=== PATIENT | male | born 1965 | race African-American/Black ===

== ENCOUNTER 2020-03-11 12:56 | Inpatient (IN) | payer BC, OTHER ==
[~2020-03-11] VITALS: Ht 182.9 cm; Wt 101.5 kg
[2020-03-11] MEDS ORDERED: SODIUM CHLORIDE 0.9% 1,000 ML IV ONE (13:45)
[2020-03-11 14:29] LABS: Eosinophils # (auto) 0 10 ^3/uL (0-0.8); Monocytes # (auto) 1.2 10 ^3/uL (0-1.3); Red Cell Distribution Width 14.5 % (11.8-14.3)
[2020-03-11 14:30] LABS: Basophils # (auto) 0 10 ^3/uL (0-0.2); Basophils % (auto) 0.5 % (0.0-2.0); Eosinophils % (auto) 0.4 % (0.0-7.0); Hematocrit 48.6 % (41.0-53.0); Hemoglobin 15.5 g/dL (13.5-17.5); Lymphocytes # (auto) 1.2 10 ^3/uL (0.4-5.4); Lymphocytes % (auto) 14.2 % (10.0-50.0); Mean Corpuscular Hemoglobin 23.6 pg (28.0-32.0); Mean Corpuscular Hgb Conc. 31.8 g/dL (32.0-36.0); Monocytes % (auto) 14.6 % (0.0-12.0); Neutrophils # (auto) 5.9 10 ^3/uL (1.6-8.6); Neutrophils % (auto) 70.3 % (37.0-80.0); Nucleated Red Blood Cells % 0.2 %; Platelet Count (auto) 198 10^3/uL (140-450); Red Blood Cells 6.57 10^6/uL (4.5-5.90); White Blood Cell 8.4 10^3/uL (4.4-10.8)
[2020-03-11 14:44] LABS: Albumin 3.7 g/dL (3.4-5.0); Anion Gap 6 (5-15); Blood Urea Nitrogen 14 mg/dL (7-18); Calcium 8.8 mg/dL (8.5-10.1); Carbon Dioxide 26 mmol/L (21-32); Chloride 104 mmol/L (98-107); Glucose 99 mg/dL (74-106); Magnesium 2.3 mg/dL (1.6-2.6); Potassium 4.1 mmol/L (3.5-5.1); Sodium 136 mmol/L (136-145)
[2020-03-11] MEDS ORDERED: ACETAMINOPHEN 500 MG TAB PO ONE (14:45)
[2020-03-11 14:50] LABS: Alanine Aminotransferase 77 U/L (16-61); Alkaline Phosphatase 96 U/L (45-117); Aspartate Aminotransferase 28 U/L (15-37); BUN/Creatinine Ratio 12.3; Bilirubin, Total 0.9 mg/dL (0.2-1.0); GFR African American 86 mL/min; GFR Non-African American 71 mL/min; Total Protein 8.8 g/dL (6.4-8.2)
[2020-03-11] MEDS ORDERED: OSELTAMIVIR 75 MG CAP PO ONE (15:30)
[2020-03-11] MEDS ORDERED: ASCORBIC ACID 500 MG TAB PO ONE (15:30)
[2020-03-11] MEDS ORDERED: AZITHROMYCIN 500MG/ 250ML 250 ML IV ONE (15:30)
[2020-03-11] MEDS ORDERED: ZINC SULFATE 220mg CAP or TAB PO ONE (17:30)
[2020-03-11] MEDS ORDERED: IOHEXOL 350 MG/ML 100ML IJ ONE (17:41)
[2020-03-11 19:18] LABS: INR 1.14 (0.9-1.15); Partial Thromboplastin Time 33.3 sec (23.64-32.05)
[2020-03-11] MEDS ORDERED: SODIUM CHLORIDE 0.9% 1,000 ML IV SCH (20:27)
[2020-03-11] MEDS ORDERED: ACETAMINOPHEN 500 MG TAB PO PRN (20:30)
[2020-03-11] MEDS ORDERED: ALBUTEROL SULF HFA 90MCG INH 200DOSE IN SCH (22:00)
[2020-03-12] VITALS (7 sets, daily range): BP systolic 103–133; BP diastolic 56–81
[2020-03-12] MEDS: DOXYCYCLINE 100 MG TAB/CAP PO SCH ×3 (01:18→21:26)
--- NOTE | 2020-03-12 01:32 | NUR ---
MS admit from ER HERMELINDOWONG admitted to tele/MS after. Patient oriented to Lucina Elizondo, primary RN, unit, room, bed, and unit policies regarding patient care and visiting hours. Patient weighed by bedscale and encouraged to call if they need something. All questions and concerns addressed, patient verbalized understanding. Patient is positive for COVID 19, on 2L nasal canula saturating at 94%. No complaints of pain or SOB at this time. Will continue to monitor. Note:
--- NOTE | 2020-03-12 01:45 | NUR ---
PATIENT PLACED ON TELE MONITOR #15.
[2020-03-12] MEDS ORDERED: CHOL20007 PO (02:34)
[2020-03-12] MEDS ORDERED: ASCO500T11 PO (02:34)
[2020-03-12 04:58] LABS: Basophils # (auto) 0 10 ^3/uL (0-0.2); Eosinophils # (auto) 0 10 ^3/uL (0-0.8); Eosinophils % (auto) 0.2 % (0.0-7.0); Monocytes # (auto) 1.4 10 ^3/uL (0-1.3); Nucleated Red Blood Cells % 0.1 %
[2020-03-12 05:00] LABS: Basophils % (auto) 0.4 % (0.0-2.0); Hemoglobin 15.2 g/dL (13.5-17.5); Lymphocytes # (auto) 1.1 10 ^3/uL (0.4-5.4); Lymphocytes % (auto) 11.8 % (10.0-50.0); Mean Corpuscular Hemoglobin 23.9 pg (28.0-32.0); Mean Corpuscular Hgb Conc. 31.7 g/dL (32.0-36.0); Mean Corpuscular Volume 75.3 fL (80.0-100.0); Monocytes % (auto) 15.6 % (0.0-12.0); Neutrophils # (auto) 6.5 10 ^3/uL (1.6-8.6); Platelet Count (auto) 172 10^3/uL (140-450); Red Blood Cells 6.38 10^6/uL (4.5-5.90)
[2020-03-12 05:15] LABS: Albumin 3.3 g/dL (3.4-5.0); Calcium 8.5 mg/dL (8.5-10.1); Magnesium 2.3 mg/dL (1.6-2.6); Potassium 4.3 mmol/L (3.5-5.1)
[2020-03-12 05:18] LABS: BUN/Creatinine Ratio 11.7; Bilirubin, Total 1.1 mg/dL (0.2-1.0); Total Protein 8.2 g/dL (6.4-8.2)
--- NOTE | 2020-03-12 08:00 | NUR ---
Received call from [employer]. regarding patient running an ectopic/bigeminy heart beat with a HR sustaining in the 140's/ Patient's HR now in the 130's. Patient denies chest pains and is asymptomatic and VSS at this time. Obtained EKG with a result of atrial flutter and paired ventricular premature complexes. Called hospitalist supervisor contact lens. MD Antonio gave orders for Labetalol 10mg IV q2h prn for HR >140 and Cardio consult. Orders read back and verified. Will carry out new orders and will cont to monitor patient.
[2020-03-12] MEDS ORDERED: LABETALOL HCL 5 MG/ML 4ML SYRINGE IV PRN (08:30)
--- NOTE | 2020-03-12 08:30 | NUR ---
Hospitalist Notified MD Mcrae regarding patient's EKG findings, including new orders given by MD Antonio. MD Mcrae agrees with new orders. MD Mcrae also notified of patient's QTC 530 therefore, Plaquenil will be held, Agrees. Will cont to monitor patient.
[2020-03-12] MEDS ORDERED: OSELTAMIVIR 75 MG CAP PO SCH (10:00)
[2020-03-12] MEDS: ZINC SULFATE 220mg CAP or TAB PO SCH (10:42)
[2020-03-12] MEDS: CHOLECALCIFEROL (VITD3) 1,000IU=25mCg TAB PO SCH (10:43)
[2020-03-12] MEDS: OSELTAMIVIR 75 MG CAP PO SCH ×2 (10:43→21:26)
[2020-03-12] MEDS: ASCORBIC ACID 1,000 MG TAB PO SCH (10:43)
[2020-03-12] MEDS: ENOXAPARIN SOD 40 MG/0.4 ML SYRINGE SC SCH (10:43)
--- NOTE | 2020-03-12 14:00 | NUR ---
Temp Patient had a temp of 101.0. Administered tylenol 1000 mg per MD orders. Will cont to monitor patient.
--- NOTE | 2020-03-12 17:30 | NUR ---
Hospitalist MD Mcrae at bedside, aware of patient status. New orders for EKG received. Patient will be upgraded from medsurg status to telemetry status. Will carry out new orders and cont to care for patient.
--- NOTE | 2020-03-12 17:53 | NUR ---
EKG EKG obtained, results read to MD Mcrae. Per MD Mcrae, she will input orders for scheduled labetalol. Will cont to monitor patient. Addendum: 03/12/20 at 1856 by KIMANI PRIETO RN RN Scheduled beta radha, no labetalol specifically.
--- NOTE | 2020-03-12 18:24 | NUR ---
Per MD Mcrae, obtain EKG in the morning 03/13/2020. Will endorse to night RN.
[2020-03-12] MEDS: cefTRIAXone 1GM/50ML D5W 50 ML IV SCH (18:47)
--- NOTE | 2020-03-12 19:30 | NUR ---
Opening Shift Note Assumed care of patient, awake and alert x4. Patient denies pain or shortness of breath at this time. Patient is on 2L NC, oxygen saturation is 94% at this time. No sign/symptoms of distress noted or verbalized at this time. Incentive spirometer noted at the bedside. Reeducated patient on the purpose of the incentive spirometer, frequency, and how to use it, patient verbalized understanding and returned demonstration. Encouraged patient to self prone (lay on his stomach), patient verbalized understanding and agreed to self prone during the night. Bed is locked in lowest position, side rails x 2 are up, and call light is within reach.
[2020-03-12] MEDS: ALBUTEROL SULF HFA 90MCG INH 200DOSE IN SCH (20:18)
[2020-03-12] MEDS: METOPROLOL TARTRATE 25 MG TAB PO SCH (21:26)
[2020-03-13 05:00] VITALS: BP 97/53
--- NOTE | 2020-03-13 05:40 | NUR ---
EKG Performed EKG performed as ordered by and placed in hardchart.
[2020-03-13] MEDS: ALBUTEROL SULF HFA 90MCG INH 200DOSE IN SCH ×3 (05:57→23:00)
--- NOTE | 2020-03-13 05:57 | NUR ---
Respiratory note: MDI GIVEN BY RN. PT HR 137, SPO2 91% ON 2 L NC, RR 20, BS CLEAR.
--- NOTE | 2020-03-13 06:43 | NUR ---
Temperature Temperature is 99.7. Cooling measures initiated and in place.
--- NOTE | 2020-03-13 07:25 | NUR ---
Temperature Temperature is 99.1. Cooling measures continue to be in place.
--- NOTE | 2020-03-13 07:26 | NUR ---
Closing Shift Note Endorsed patient care to Hayde ASHER.
--- NOTE | 2020-03-13 08:41 | NUR ---
Gurdeep labs and sent
[2020-03-13] MEDS: cefTRIAXone 1GM/50ML D5W 50 ML IV SCH (09:51)
[2020-03-13] MEDS: ZINC SULFATE 220mg CAP or TAB PO SCH (09:51)
[2020-03-13] MEDS: METOPROLOL TARTRATE 25 MG TAB PO SCH ×2 (09:53→22:00)
[2020-03-13] MEDS: DOXYCYCLINE 100 MG TAB/CAP PO SCH ×2 (09:53→21:30)
[2020-03-13] MEDS: OSELTAMIVIR 75 MG CAP PO SCH ×2 (09:53→21:33)
[2020-03-13] MEDS: ENOXAPARIN SOD 40 MG/0.4 ML SYRINGE SC SCH (09:56)
[2020-03-13] MEDS: ASCORBIC ACID 1,000 MG TAB PO SCH (09:56)
[2020-03-13] MEDS: CHOLECALCIFEROL (VITD3) 1,000IU=25mCg TAB PO SCH (09:56)
[2020-03-13] MEDS ORDERED: ASCORBIC ACID 500 MG TAB PO SCH (10:00)
[2020-03-13] MEDS ORDERED: FUROSEMIDE 20 MG/2 ML VIAL IV ONE (10:30)
[2020-03-13] MEDS ORDERED: AMIODARONE HCL 150 MG in D5W 5% 100 ML IV ONE (10:30)
[2020-03-13] MEDS ORDERED: MAGNESIUM OXIDE 400 MG TAB PO ONE (10:30)
[2020-03-13 10:40] LABS: BUN/Creatinine Ratio 13.1; Calcium 8.9 mg/dL (8.5-10.1)
[2020-03-13 12:00] VITALS: BP 118/61
[2020-03-13 12:25] VITALS: BP 115/61
--- NOTE | 2020-03-13 14:15 | NUR ---
Respiratory note: MDI GIVEN BY RT. TOLERATED WELL. HR 93, RR 14, SPO2 95% ON 2 L NC, CLEAR. NO SIGNS OR SYMPTOMS OF RESPIRATORY DISTRESS NOTED AT THIS TIME.
[2020-03-13 14:21] LABS: Cholesterol 174 mg/dL (< 200); HDL Cholesterol 38 mg/dL (40-59); LDL Cholesterol 111 mg/dL (< 100); Triglycerides 94 mg/dL (< 150)
--- NOTE | 2020-03-13 15:19 | NUR ---
ss consult Per ss consult advanced directive information. Patient has been provided with advanced directive. Addendum: 03/13/20 at 1521 by Ira MEDINA Amended: Links added.
[2020-03-13 16:56] VITALS: BP 111/73
[2020-03-13 17:36] LABS: Alcohol, Urine < 3.0 mg/dL (0-10); Amphetamine Screen, Urine NEGATIVE (NEGATIVE); Barbiturate Scree,Urine NEGATIVE (NEGATIVE); Benzodiazephine Screen, Urine NEGATIVE (NEGATIVE); Cannabinoid Screen, Urine NEGATIVE (NEGATIVE); Cocaine Screen, Urine NEGATIVE (NEGATIVE); Opiate Scree,Urine NEGATIVE (NEGATIVE); Phencyclidine Screen, Urine NEGATIVE (NEGATIVE)
--- NOTE | 2020-03-13 19:10 | NUR ---
Opening Shift Note Received report from romario Marin RN. Assumed care of patient, awake and alert. No S/S of distress/SOB or pain. On 2LNC saturating at 94%. Instructed on POC and to call for assist PRN, will continue to monitor for changes Q1hr and PRN. Bed placed in lowest position and call light within reach.
[2020-03-13 20:00] VITALS: BP 112/75
--- NOTE | 2020-03-13 20:16 | NUR ---
ROUNDS Patient states his last bowel movement was 4 days ago. Bowel sounds present to all quadrants and patient states he does not have any appetite, but continues to passed gas. Given some tea per request. Will monitor.
[2020-03-13] MEDS: APIXABAN 5 MG TAB PO SCH (21:33)
[2020-03-13] MEDS: MAGNESIUM OXIDE 400 MG TAB PO SCH (21:33)
[2020-03-13] MEDS ORDERED: AMIODARONE HCL 200 MG TAB PO SCH (22:00)
[2020-03-14] VITALS: BP 100/52
--- NOTE | 2020-03-14 | NUR ---
ROUNDS PATIENT IS RESTING IN BED WITH EYES CLOSED, NO DISTRESS NOTED SATURATING AT 95% ON 2LNC, HEART RATE IS 78BPM. WILL MONITOR.
[2020-03-14 04:00] VITALS: BP 108/77
--- NOTE | 2020-03-14 04:00 | NUR ---
ROUNDS PATIENT IS ALERT AND ORIENTED, NO DISTRESS NOTED AND PATIENT DENIES PAIN, ON 2LNC SATURATING AT 95%. BLOOD PRESSURE IS 108/77, PULSE IS 74, AND RESPIRATIONS 18.
[2020-03-14] MEDS: ALBUTEROL SULF HFA 90MCG INH 200DOSE IN SCH (07:02)
--- NOTE | 2020-03-14 07:20 | NUR ---
Respiratory note: PER PT STATES HE ALREADY SELF ADMINISTERED MDI, RN AMAURI CLEARED Emr. PT DENIES ANY CURRENT SOB OR DIFF BREATHING. HR 113 RR 16 SPO2 94% ON 2L N/C. PT AND RN AWARE TO HAVE RT PAGED IF NEEDED.
[2020-03-14 07:24] VITALS: BP 108/77
--- NOTE | 2020-03-14 08:00 | NUR ---
Spoke with Rashida Mckay HYDROLOGIST-C Regarding patients rate and rhythm, orders placed by provider.
[2020-03-14] MEDS ORDERED: AMIODARONE 450mg/250ml AE 250 ML IV SCH (08:23)
[2020-03-14] MEDS: cefTRIAXone 1GM/50ML D5W 50 ML IV SCH (09:41)
[2020-03-14] MEDS: METOPROLOL TARTRATE 25 MG TAB PO SCH ×2 (09:43→21:36)
[2020-03-14] MEDS: APIXABAN 5 MG TAB PO SCH ×2 (09:43→21:37)
[2020-03-14] MEDS: ZINC SULFATE 220mg CAP or TAB PO SCH (09:43)
[2020-03-14] MEDS: DOXYCYCLINE 100 MG TAB/CAP PO SCH ×2 (09:44→21:36)
[2020-03-14] MEDS: ASCORBIC ACID 1,000 MG TAB PO SCH (09:44)
[2020-03-14] MEDS: CHOLECALCIFEROL (VITD3) 1,000IU=25mCg TAB PO SCH (09:44)
[2020-03-14] MEDS: OSELTAMIVIR 75 MG CAP PO SCH ×2 (09:44→21:37)
[2020-03-14] MEDS: MAGNESIUM OXIDE 400 MG TAB PO SCH ×2 (09:44→21:35)
[2020-03-14] MEDS ORDERED: FUROSEMIDE 20 MG/2 ML VIAL IV SCH (10:00)
--- NOTE | 2020-03-14 11:30 | NUR ---
Patients Gela called regarding patients current condition. Gave her information after she gave the password on patients account.
[2020-03-14 12:54] VITALS: BP 108/75
[2020-03-14] MEDS ORDERED: POTASSIUM CHL 10 Meq TABLET PO ONE (14:00)
[2020-03-14] MEDS: AMIODARONE 450mg/250ml AE 250 ML IV SCH (14:22)
--- NOTE | 2020-03-14 14:59 | NUR ---
Respiratory note: 14:00 ALBUTEROL INH NOT ADMINISTERED DUE TO BEING DC'D BY DR. MONTERROSO. RN AWARE TO HAVE RT PAGED IF NEEDED.
[2020-03-14 17:00] VITALS: BP 115/67
--- NOTE | 2020-03-14 19:10 | NUR ---
OPENING SHIFT NOTE: ASSUMED CARE OF PATIENT. PATIENT IS AWAKE, ALERT AND ORIENTED X4. NO S/S OF SOB OR DISTRESS AND PATIENT DENIES PAIN. RESPIRATIONS EVEN AND UNLABORED, O2 96% ON 2L NC. CONTINUOUS FLEXOGRAPHIC PRESS PLATE SETTER BOX #15 WITH CURRENT READING OF 97 BPM. BED IS IN LOWEST LOCKED POSITION WITH TWO SIDE RAILS RAISED AND CALL BHATIA WITHIN REACH. ISOLATINON PRECAUTIONS IN PLACE AND CARE PROVIDED USING PROVIDED PPE. INSTRUCTED ON POC AND INSTRUCTED TO USE CALL BHATIA FOR ASSISTANCE, ALL QUESTIONS AND CONCERNS ADDRESSED, PATIENT VERBALIZES UNDERSTANDING. WILL CONTINUE TO MONITOR Q1 HR AND PRN.
[2020-03-14 20:00] VITALS: BP 119/87
[2020-03-15] VITALS: BP 118/73
[2020-03-15 04:00] VITALS: BP 123/88
[2020-03-15] MEDS: AMIODARONE 450mg/250ml AE 250 ML IV SCH (05:49)
[2020-03-15 05:55] LABS: Basophils # (auto) 0 10 ^3/uL (0-0.2); Basophils % (auto) 0.5 % (0.0-2.0); Eosinophils # (auto) 0 10 ^3/uL (0-0.8); Eosinophils % (auto) 0.7 % (0.0-7.0); Hematocrit 43.7 % (41.0-53.0); Lymphocytes # (auto) 0.9 10 ^3/uL (0.4-5.4); Lymphocytes % (auto) 14.1 % (10.0-50.0); Mean Corpuscular Hemoglobin 23.6 pg (28.0-32.0); Mean Corpuscular Hgb Conc. 32.1 g/dL (32.0-36.0); Mean Corpuscular Volume 73.5 fL (80.0-100.0); Monocytes # (auto) 1.1 10 ^3/uL (0-1.3); Monocytes % (auto) 16.7 % (0.0-12.0); Neutrophils # (auto) 4.3 10 ^3/uL (1.6-8.6); Platelet Count (auto) 207 10^3/uL (140-450); Red Blood Cells 5.94 10^6/uL (4.5-5.90); Red Cell Distribution Width 14.2 % (11.8-14.3); White Blood Cell 6.3 10^3/uL (4.4-10.8)
--- NOTE | 2020-03-15 06:00 | NUR ---
ROUNDS: Patient resting in bed with eyes closed, no distress noted and O2 saturation 98% on 2L NC. Will continue to monitor
[2020-03-15 06:23] LABS: Calcium 8.7 mg/dL (8.5-10.1)
[2020-03-15 06:29] LABS: Albumin 2.9 g/dL (3.4-5.0); BUN/Creatinine Ratio 17.1; Bilirubin, Total 1.1 mg/dL (0.2-1.0)
--- NOTE | 2020-03-15 07:30 | NUR ---
Opening Shift Note Assumed care of patient, awake and alert. No S/S of distress/SOB or pain. Instructed on POC and to call for assist PRN, will continue to monitor for changes Q1hr and PRN. Fall precautions in place per safety protocol.
[2020-03-15 08:00] VITALS: BP 109/82
[2020-03-15] MEDS ORDERED: FUROSEMIDE 20 MG/2 ML VIAL IV SCH (10:00)
[2020-03-15] MEDS: METOPROLOL TARTRATE 25 MG TAB PO SCH ×3 (10:00→22:06)
[2020-03-15] MEDS ORDERED: POTASSIUM CHL 10 Meq TABLET PO SCH (10:00)
[2020-03-15] MEDS: ZINC SULFATE 220mg CAP or TAB PO SCH (10:08)
[2020-03-15] MEDS: cefTRIAXone 1GM/50ML D5W 50 ML IV SCH (10:08)
[2020-03-15] MEDS: APIXABAN 5 MG TAB PO SCH ×2 (10:08→22:05)
[2020-03-15] MEDS: OSELTAMIVIR 75 MG CAP PO SCH ×2 (10:09→22:05)
[2020-03-15] MEDS: MAGNESIUM OXIDE 400 MG TAB PO SCH ×2 (10:09→22:05)
[2020-03-15] MEDS: ASCORBIC ACID 1,000 MG TAB PO SCH (10:09)
[2020-03-15] MEDS: DOXYCYCLINE 100 MG TAB/CAP PO SCH ×2 (10:09→22:05)
[2020-03-15] MEDS: CHOLECALCIFEROL (VITD3) 1,000IU=25mCg TAB PO SCH (10:09)
[2020-03-15] MEDS ORDERED: DOCUSATE SOD 100 MG CAP PO ONE (11:00)
[2020-03-15] MEDS ORDERED: DOCUSATE SOD 100 MG CAP PO PRN (11:00)
--- NOTE | 2020-03-15 11:00 | NUR ---
Hospitalist MD Mcrae called for update on patient. Notified, MD Mcrae of held Metoprolol due to Low BP. Per MD Mcrae reassess BP at this time, give Metoprolol, then DC Amio drip after 1 hour of giving Metoprolol. Medicated patient with Metoprolol after BP Reassessment was 113/81 with HR 75. Will DC Amio drip at noon as requested by MD Mcrea. Also obtained order for Colace as patient is experiencing some difficulty having a bowel movement. Orders read back and verified, will cont to monitor patient.
[2020-03-15 12:00] VITALS: BP 120/78
--- NOTE | 2020-03-15 15:02 | NUR ---
Nutrition Assessment Notes please see attached link for complete assessment Est. Energy Needs ABW 91 [id number] kcal (23-25 kcal/kg BW), Est. Protein Needs: 91-99 gms/day (1.0-1.1 gms/kg ABW)Will continue to monitor and reassess prn. Addendum: 03/15/20 at [address] Amended: Links added.
[2020-03-15 16:30] VITALS: BP 116/69
--- NOTE | 2020-03-15 19:15 | NUR ---
Opening Shift Note Assumed care of patient, awake, alert and oriented x4, on 2L of oxygen via NC with even and unlabored respirations, no S/S of distress/SOB or pain. Patient able to ambulate independently, bed in lowest locked position, side rails up x2, and call light within reach. Instructed on POC and to call for assist PRN, will continue to monitor for changes Q1hr and PRN.
--- NOTE | 2020-03-15 19:38 | NUR ---
Endorsed care to night LAKESHIA Medrano.
[2020-03-15 20:45] VITALS: BP 126/74
[2020-03-16] MEDS: guaiFENesin-DM 100/10mg/5ml SYR PO PRN (02:14)
[2020-03-16 08:00] VITALS: BP 130/80
[2020-03-16 08:34] LABS: Albumin 3.1 g/dL (3.4-5.0); BUN/Creatinine Ratio 16.7; Calcium 8.9 mg/dL (8.5-10.1); Potassium 4.1 mmol/L (3.5-5.1)
[2020-03-16 08:37] LABS: Total Protein 8.4 g/dL (6.4-8.2)
--- NOTE | 2020-03-16 09:19 | NUR ---
Patient educated on how to use IS. patient verbalized understanding. Patient refused placement of blood pressure cuff stating his arm hurts from previous IV placed to his left arm. Patient provided with ice pack. circulation assessed patient able to wiggle fingers and bilateral 2+ pulses, capillary refill less than 3 seconds. patient refused placement of blood pressure cuff on other arm. benefits and risks educated to patient. patient refused. Addendum: 03/16/20 at 2200 by AMBER GUTHRIE RN RN wrong time
[2020-03-16] MEDS: ZINC SULFATE 220mg CAP or TAB PO SCH (10:07)
[2020-03-16] MEDS: APIXABAN 5 MG TAB PO SCH ×2 (10:07→21:30)
[2020-03-16] MEDS: cefTRIAXone 1GM/50ML D5W 50 ML IV SCH (10:07)
[2020-03-16] MEDS: ASCORBIC ACID 1,000 MG TAB PO SCH (10:08)
[2020-03-16] MEDS: CHOLECALCIFEROL (VITD3) 1,000IU=25mCg TAB PO SCH (10:08)
[2020-03-16] MEDS: MAGNESIUM OXIDE 400 MG TAB PO SCH ×2 (10:08→21:13)
[2020-03-16] MEDS: METOPROLOL TARTRATE 25 MG TAB PO SCH ×2 (10:08→21:13)
[2020-03-16] MEDS: OSELTAMIVIR 75 MG CAP PO SCH ×2 (10:08→21:12)
[2020-03-16] MEDS: DOXYCYCLINE 100 MG TAB/CAP PO SCH (10:08)
[2020-03-16 10:50] LABS: Hepatitis A Ab IgM Negative; Hepatitis B Core IgM Negative; Hepatitis B Surface Antigen Negative (Negative); Hepatitis C Antibody Negative (Negative)
[2020-03-16 11:30] VITALS: BP 105/84
[2020-03-16] MEDS ORDERED: LACTULOSE 20Gm/30ML SOLN PO ONE (16:45)
[2020-03-16 17:30] VITALS: BP 108/72
--- NOTE | 2020-03-16 17:30 | NUR ---
Hospitalist Spoke to MD Mcrae regarding patient status. Per MD Mcrae monitor patient on RA and change lactulose orders to prn. Will carry out new orders and will cont to monitor patient.
[2020-03-16] MEDS ORDERED: LACTULOSE 20Gm/30ML SOLN PO PRN (18:00)
--- NOTE | 2020-03-16 19:53 | NUR ---
Report endorsed to night RN Noni. Patient resting in bed, no distress, sob, or pain noted. Patient O2 Sat at this time is 93% on RA.
--- NOTE | 2020-03-16 20:00 | NUR ---
Opening Shift Note Assumed care of patient, awake and alert. No S/S of distress/SOB or pain. Patient is on room air saturating at 91% room air. rr 16. Instructed on POC and to call for assist PRN, will continue to monitor for changes Q1hr and PRN. bed in low position and call light within reach.
--- NOTE | 2020-03-16 21:19 | NUR ---
Patient educated on how to use IS. patient verbalized understanding. Patient refused placement of blood pressure cuff stating his arm hurts from previous IV placed to his left arm. Patient provided with ice pack. circulation assessed patient able to wiggle fingers and bilateral 2+ pulses, capillary refill less than 3 seconds. patient refused placement of blood pressure cuff on other arm. benefits and risks educated to patient. patient refused.
[2020-03-16 22:01] VITALS: BP 108/69
--- NOTE | 2020-03-17 02:10 | NUR ---
patient reported sob after ambulating to the restroom.patient position back in bed with head of bed up. patient placed on 2 l via nasal cannula. patient b/p 103/70, hr 70, o2 saturation 94%, rr 18 bilateral chest rise and fall, even and unlabored. Patient denies sob after placed on oxygen denies pain. patient encouraged to call for assistance. will continue to monitor q1hr and prn. bed in low position and call light within reach.
[2020-03-17 04:52] VITALS: BP 105/69
--- NOTE | 2020-03-17 05:00 | NUR ---
blood bank laboratory technologist notified for lab draw
[2020-03-17] MEDS: guaiFENesin-DM 100/10mg/5ml SYR PO PRN (06:31)
--- NOTE | 2020-03-17 06:41 | NUR ---
lab draw [employer] manager notified again of lab draw
--- NOTE | 2020-03-17 07:15 | NUR ---
Patient is awake and alert denies sob distress or pain. report given to dayshift rn
--- NOTE | 2020-03-17 07:40 | NUR ---
Opening Shift Note Assumed care of patient, awake and alert. No S/S of distress, SOB with activity remain on 2l 93%, denies pain. Instructed on POC and to call for assist PRN, will continue to monitor for changes Q1hr and PRN.
[2020-03-17 08:07] VITALS: BP 105/59
[2020-03-17 08:09] LABS: Albumin 2.9 g/dL (3.4-5.0); Calcium 8.7 mg/dL (8.5-10.1); Potassium 4.3 mmol/L (3.5-5.1)
[2020-03-17 08:14] LABS: Bilirubin, Total 0.8 mg/dL (0.2-1.0); Total Protein 8.3 g/dL (6.4-8.2)
[2020-03-17] MEDS: ZINC SULFATE 220mg CAP or TAB PO SCH (09:52)
[2020-03-17] MEDS: cefTRIAXone 1GM/50ML D5W 50 ML IV SCH (09:52)
[2020-03-17] MEDS: METOPROLOL TARTRATE 25 MG TAB PO SCH (09:52)
[2020-03-17] MEDS: APIXABAN 5 MG TAB PO SCH (09:52)
[2020-03-17] MEDS: ASCORBIC ACID 1,000 MG TAB PO SCH (09:53)
[2020-03-17] MEDS: CHOLECALCIFEROL (VITD3) 1,000IU=25mCg TAB PO SCH (09:53)
[2020-03-17] MEDS: MAGNESIUM OXIDE 400 MG TAB PO SCH (09:53)
[2020-03-17] MEDS ORDERED: LACTULOSE 20Gm/30ML SOLN PO SCH (10:00)
[2020-03-17] MEDS ORDERED: MET25T PO (10:41)
[2020-03-17] MEDS ORDERED: MAGN400T21 PO (10:41)
[2020-03-17] MEDS ORDERED: APIX5TAB PO (10:41)
--- NOTE | 2020-03-17 11:16 | NUR ---
O2 SATS 92-94 ON 2L , 88-90% ON RA, SOB WITH ACTIVITY.
--- NOTE | 2020-03-17 12:13 | NUR ---
assessment Patient is a 54 year old male who is alert and oriented. Prior to admission patient lived home with his and was independent. Per patient he will return home on discharge and his will transport him home. Patient is Covid positive. Patient will need home 02 on discharge. Milka [id number] will satisfy order. Patient has no safety issues regarding returning home on discharge. Patient verbalized understanding and agreed to discharge plan home. Addendum: 03/17/20 at 1215 by Ira MEDINA Amended: Links added.
[2020-03-17 12:53] VITALS: BP 108/73
--- NOTE | 2020-03-17 13:58 | NUR ---
D/C planning Per SS consult for home oxygen at 2l/min. Faxed clinical information to [employer]. Per CURTIS with [employer] [phone] they will deliver oxygen to front lobby and concentrate oxygen to home.
--- NOTE | 2020-03-17 16:13 | NUR ---
Discharge instructions given as ordered. Encourage to follow up with PMD as instructed. All questions and concerns addressed. Patient verbalized understanding. Medication reconciliation form completed and copy given to patient. IV removed with catheter intact, pressure dressing applied, . Telemetry unit returned to ICU. Patient taken to vehicle via wheelchair with all personal belongings, O2 with patient, accompanied by staff and family member. No distress noted at time of departure.
== END 2020-03-17 15:00 | disposition home or self-care (01) | DRG 193 ==
LOC: ER 12:56 → OVERFLOW 12:57 → EAST 23:58 → TELE-EAST 03-12 18:55
PROVIDERS: ADMIT Hospitalist; ATTEND Internal Medicine
DX: J10.08 Influenza due to other identified influenza virus with other specified pneumonia (principal); U07.1 COVID-19; I50.31 Acute diastolic (congestive) heart failure; J96.00 Acute respiratory failure, unspecified whether with hypoxia or hypercapnia; I48.92 Unspecified atrial flutter; J15.9 Unspecified bacterial pneumonia; I48.0 Paroxysmal atrial fibrillation; I49.3 Ventricular premature depolarization; E66.01 Morbid (severe) obesity due to excess calories; Z82.49 Family history of ischemic heart disease and other diseases of the circulatory system; Z90.49 Acquired absence of other specified parts of digestive tract; Z79.899 Other long term (current) drug therapy; Z68.30 Body mass index [BMI] 30.0-30.9, adult
CPT/HCPCS: 36415; 71045; 71275; 80048; 80053; 80061; 80074; 80307; 82728; 83605; 83615; 83735; 83880; 84443; 84484; 85025; 85379; 85610; 85730; 86141; 87040; 87070; 87804; 87880; 93005; 93970; 94640; G0378; J0696; J7060

== ENCOUNTER 2022-02-23 18:03 | Inpatient (IN) | payer BC ==
[~2022-02-23] VITALS: Ht 182.9 cm; Wt 107.6 kg
[~2022-02-23 18:03] MED LIST: APIX5TAB PO; ASCO500T11 PO; CHOL20007 PO; MAGN241.4 PO; MET25T PO
[2022-02-23 21:32] LABS: Basophils # (auto) 0.1 10 ^3/uL (0-0.2); Basophils % (auto) 1.5 % (0.0-2.0); Eosinophils # (auto) 0 10 ^3/uL (0-0.8); Eosinophils % (auto) 0.4 % (0.0-7.0); Hematocrit 45.8 % (41.0-53.0); Hemoglobin 15.4 g/dL (13.5-17.5); Lymphocytes % (auto) 11.6 % (10.0-50.0); Mean Corpuscular Hemoglobin 24.9 pg (28.0-32.0); Mean Corpuscular Hgb Conc. 33.6 g/dL (32.0-36.0); Mean Corpuscular Volume 74.1 fL (80.0-100.0); Monocytes # (auto) 0.7 10 ^3/uL (0-1.3); Neutrophils # (auto) 6.4 10 ^3/uL (1.6-8.6); Neutrophils % (auto) 78.5 % (37.0-80.0); Nucleated Red Blood Cells % 0.2 %; Red Blood Cells 6.18 10^6/uL (4.5-5.90); Red Cell Distribution Width 15.1 % (11.8-14.3); White Blood Cell 8.2 10^3/uL (4.4-10.8)
[2022-02-23 21:53] LABS: Albumin 3.7 g/dL (3.4-5.0); Calcium 8.6 mg/dL (8.5-10.1); Potassium 4.1 mmol/L (3.5-5.1)
[2022-02-23 21:56] LABS: BUN/Creatinine Ratio 13.4; Bilirubin, Total 1.7 mg/dL (0.2-1.0); Total Protein 7.5 g/dL (6.4-8.2)
[2022-02-23] MEDS ORDERED: methylPREDNISolone SOD SUCC 125 MG/2 ML VL IV ONE (22:45)
[2022-02-23] MEDS ORDERED: ASPirin 81 mg TAB PO ONE (23:00)
[2022-02-23] MEDS ORDERED: diphenhdrAMINE HCL 50 MG/1 ML VL IV ONE (23:00)
[2022-02-23] MEDS ORDERED: SODIUM CHLORIDE 0.9% 1,000 ML IV SCH (23:45)
[2022-02-23] MEDS ORDERED: DOCUSATE SOD 100 MG CAP PO PRN (23:45)
[2022-02-23] MEDS ORDERED: MORPHINE SULFATE INJ 2 MG/ml SYRG IV PRN ×2 (23:45)
[2022-02-23] MEDS ORDERED: ONDANSETRON HCL 4 MG/2 ML VIAL IV PRN (23:45)
[2022-02-23] MEDS ORDERED: NITROGLYCERIN 0.4 MG SL TAB SL PRN (23:45)
[2022-02-23] MEDS ORDERED: ACETAMINOPHEN 325 MG TAB PO PRN (23:45)
[2022-02-23] MEDS ORDERED: HYDROcodone-ACET 5/325MG TAB PO PRN (23:45)
[2022-02-24] MEDS ORDERED: HEPARIN DRIP/D5W 100UNITS/ML 250 ML IV SCH (03:30)
[2022-02-24 03:41] LABS: Basophils # (auto) 0 10 ^3/uL (0-0.2); Eosinophils # (auto) 0 10 ^3/uL (0-0.8); Hemoglobin 15.3 g/dL (13.5-17.5); Monocytes # (auto) 0.2 10 ^3/uL (0-1.3); Monocytes % (auto) 1.6 % (0.0-12.0); Neutrophils # (auto) 8.6 10 ^3/uL (1.6-8.6); Nucleated Red Blood Cells % 0.1 %; White Blood Cell 9.3 10^3/uL (4.4-10.8)
[2022-02-24 03:42] LABS: Basophils % (auto) 0.1 % (0.0-2.0); Hematocrit 45.2 % (41.0-53.0); Lymphocytes # (auto) 0.6 10 ^3/uL (0.4-5.4); Lymphocytes % (auto) 6.2 % (10.0-50.0); Mean Corpuscular Hemoglobin 25.1 pg (28.0-32.0); Mean Corpuscular Hgb Conc. 33.8 g/dL (32.0-36.0); Mean Corpuscular Volume 74.2 fL (80.0-100.0); Neutrophils % (auto) 92.1 % (37.0-80.0); Red Blood Cells 6.09 10^6/uL (4.5-5.90); Red Cell Distribution Width 15.2 % (11.8-14.3)
[2022-02-24 03:56] LABS: INR 1.1 (0.9-1.15); Partial Thromboplastin Time 32.9 sec (23.6-33.0)
[2022-02-24] MEDS ORDERED: ENOXAPARIN SOD 100 MG/1 ML SYRINGE SC ONE (04:30)
[2022-02-24 05:00] VITALS: BP 117/64
[2022-02-24 05:24] LABS: BUN/Creatinine Ratio 13.7; Bilirubin, Total 1.5 mg/dL (0.2-1.0); Calcium 8.5 mg/dL (8.5-10.1); Potassium 4.5 mmol/L (3.5-5.1)
[2022-02-24 05:25] LABS: Albumin 3.3 g/dL (3.4-5.0); Total Protein 7.6 g/dL (6.4-8.2)
[2022-02-24] MEDS ORDERED: HEPARIN SODIUM (PORCINE) 5000 UNITS/ML 1ML VIAL SC SCH (06:00)
[2022-02-24 06:11] VITALS: BP 117/64
[2022-02-24] MEDS ORDERED: BENA5TAB9 PO ×2 (06:32→14:38)
[2022-02-24] MEDS ORDERED: SPIR25TA8 PO (06:43)
[2022-02-24] MEDS ORDERED: APIX5TAB PO (06:43)
[2022-02-24] MEDS ORDERED: ATOR20TA50 PO (06:43)
[2022-02-24] MEDS ORDERED: CARV3.1240 PO (06:43)
[2022-02-24 09:00] VITALS: BP 115/74
[2022-02-24] MEDS ORDERED: CARVEDILOL 3.125 MG TAB PO SCH (10:00)
[2022-02-24] MEDS ORDERED: ASPirin 81 mg TAB PO SCH (10:00)
[2022-02-24] MEDS: ASPirin 81 mg TAB PO SCH (11:45)
[2022-02-24] MEDS ORDERED: CARVEDILOL 3.125 MG TAB PO ONE (11:45)
[2022-02-24 13:00] VITALS: BP 116/73
[2022-02-24] MEDS: diphenhdrAMINE HCL 50 MG/1 ML VL IV PRN (15:42)
[2022-02-24] MEDS ORDERED: ENOXAPARIN SOD 60 MG/0.6 ML SYRINGE SC SCH (16:30)
[2022-02-24 17:00] VITALS: BP 104/67
[2022-02-24] MEDS: CARVEDILOL 3.125 MG TAB PO SCH (21:56)
[2022-02-24 22:00] VITALS: BP 116/70
[2022-02-25] MEDS: diphenhdrAMINE HCL 50 MG/1 ML VL IV PRN (00:35)
[2022-02-25] MEDS ORDERED: diphenhdrAMINE HCL 50 MG/1 ML VL IV ONE (03:00)
[2022-02-25 05:00] VITALS: BP 105/74
[2022-02-25 09:00] VITALS: BP 113/77
[2022-02-25] MEDS: ENOXAPARIN SOD 40 MG/0.4 ML SYRINGE SC SCH (10:00)
[2022-02-25] MEDS: ASPirin 81 mg TAB PO SCH (10:00)
[2022-02-25] MEDS: CARVEDILOL 3.125 MG TAB PO SCH ×2 (10:00→21:45)
[2022-02-25] MEDS ORDERED: methylPREDNISolone SOD SUCC 40 MG/ML VL IV ONE (11:30)
[2022-02-25 13:00] VITALS: BP 132/78
[2022-02-25 17:00] VITALS: BP 110/71
[2022-02-25] MEDS: AMIODARONE HCL 200 MG TAB PO SCH (21:44)
[2022-02-25 22:00] VITALS: BP 112/74
[2022-02-26] VITALS (11 sets, daily range): BP systolic 101–120; BP diastolic 67–80
[2022-02-26] MEDS ORDERED: IODIXANOL 320MG/ML 100ML BTL IV ONE (08:54)
[2022-02-26] MEDS ORDERED: LIDOCAINE 2%HCL (LOCAL ANESTH.) INJ 10ml MDV ONE (08:55)
[2022-02-26] MEDS ORDERED: VERAPAMIL 2.5MG/ML INJ 2ML VIAL IV ONE (09:08)
[2022-02-26] MEDS ORDERED: fentaNYL CITRATE 100 MCG/2 ML VL ONE (09:08)
[2022-02-26] MEDS ORDERED: ANGIOMAX 250 MG VIAL IV ONE (09:08)
[2022-02-26] MEDS ORDERED: HEPARIN SODIUM (PORCINE) 5000 UNITS/ML 1ML VIAL ONE (09:08)
[2022-02-26] MEDS ORDERED: MIDAZOLAM HCL 2MG/2ML 2ml VIAL (1mg/ml) ONE (09:09)
[2022-02-26] MEDS ORDERED: SODIUM CHL 0.9% 0 ML ONE (09:09)
[2022-02-26] MEDS: ENOXAPARIN SOD 40 MG/0.4 ML SYRINGE SC SCH (10:00)
[2022-02-26] MEDS: CARVEDILOL 3.125 MG TAB PO SCH (10:00)
[2022-02-26] MEDS: AMIODARONE HCL 200 MG TAB PO SCH (11:08)
[2022-02-26] MEDS: ASPirin 81 mg TAB PO SCH (11:08)
[2022-02-26] MEDS ORDERED: AMIO200T33 PO (21:04)
[2022-02-26] MEDS ORDERED: FURO1TAB33 PO (21:05)
[2022-02-26] MEDS ORDERED: METO25TA36 PO (21:05)
== END 2022-02-26 22:20 | disposition home or self-care (01) | DRG 281 ==
LOC: EDSEX 18:03 → ER 18:03 → EDBD 18:03 → TELE 23:35 → TELE-CENTR 02-24 05:02
PROVIDERS: ADMIT Nurse Practitioner Family; ATTEND Internal Medicine Geriatric Medicine
PROC: 4B02XTZ Measurement of Cardiac Defibrillator, External Approach (ICD-10-PCS; 2022-02-24)
PROC: 4A023N7 Measurement of Cardiac Sampling and Pressure, Left Heart, Percutaneous Approach (ICD-10-PCS; principal; 2022-02-26)
PROC: B211YZZ Fluoroscopy of Multiple Coronary Arteries using Other Contrast (ICD-10-PCS; 2022-02-26)
PROC: B215YZZ Fluoroscopy of Left Heart using Other Contrast (ICD-10-PCS; 2022-02-26)
DX: T82.118A Breakdown (mechanical) of other cardiac electronic device, initial encounter (principal); I21.4 Non-ST elevation (NSTEMI) myocardial infarction; I42.8 Other cardiomyopathies; D69.6 Thrombocytopenia, unspecified; E78.5 Hyperlipidemia, unspecified; E66.9 Obesity, unspecified; I11.0 Hypertensive heart disease with heart failure; I50.9 Heart failure, unspecified; I48.91 Unspecified atrial fibrillation; Y71.2 Prosthetic and other implants, materials and accessory cardiovascular devices associated with adverse incidents; Z20.822 Contact with and (suspected) exposure to COVID-19; Z82.49 Family history of ischemic heart disease and other diseases of the circulatory system; Z79.899 Other long term (current) drug therapy; Z68.32 Body mass index [BMI] 32.0-32.9, adult; Z88.8 Allergy status to other drugs, medicaments and biological substances; I25.2 Old myocardial infarction; Z95.810 Presence of automatic (implantable) cardiac defibrillator; Z90.49 Acquired absence of other specified parts of digestive tract; Y92.89 Other specified places as the place of occurrence of the external cause
CPT/HCPCS: 36415; 71046; 80053; 83880; 84484; 85025; 85610; 85730; 93005; 93306; 96361; 96374; 96375; 99152; 99153; G0378; J2001; J2250; Q9967